=== PATIENT | male | born 1995 | race Caucasian/White ===

== ENCOUNTER 2018-03-18 12:23 | Emergency (ER) | payer BC ==
[~2018-03-18] VITALS: Ht 172.7 cm; Wt 97.5 kg
[2018-03-18] MEDS ORDERED: TESSALON PERLE100 M1 PO (14:29)
[2018-03-18] MEDS ORDERED: ZITHROMAX250 MG PO (14:29)
[2018-03-18] MEDS ORDERED: PREDNISONE20 M1 PO (14:29)
[2018-03-18] MEDS ORDERED: PROVENTIL HFA6.7 GM INH (14:29)
== END 2018-03-18 14:41 | disposition home or self-care (01) ==
LOC: ED 12:23
DX: J20.9 Acute bronchitis, unspecified (principal); F17.200 Nicotine dependence, unspecified, uncomplicated